=== PATIENT | male | born 1960 | race Caucasian/White ===

== ENCOUNTER → 2019-01-03 | Outpatient (CLI) | payer BC, MEDICARE ==
--- NOTE | 2019-01-04 08:25 | RAD ---
EXAM DESCRIPTION: Chest,2 Views CLINICAL HISTORY: BACTERIAL RESPIRATORY INFECTION COMPARISON: None TECHNIQUE: PA/lateral FINDINGS: There is no acute appearing cardiac or pulmonary abnormality. Heart size is prominent with normal pulmonary vascularity. No pleural effusion or pneumothorax. Densities in the medial lung bases are thought to be crowded vessels rather than atelectasis or infiltrate since the lateral view shows no evidence of infiltrate behind the heart. Lungs are otherwise clear with no consolidating infiltrate. Lateral view shows intact sternum and T-spine. IMPRESSION: No acute process is identified in the chest. Electronically signed by: Bo Peñaloza MD 01/04/2019 8:22 AM [facility]
== END ==
LOC: LAB.O 19:38
PROVIDERS: ATTEND Nurse Practitioner Family
DX: J98.8 Other specified respiratory disorders (principal)